=== PATIENT | male | born 1970 | race Caucasian/White ===

== ENCOUNTER 2018-07-14 14:16 | Emergency (ER) | payer BC ==
[~2018-07-14] VITALS: Ht 188 cm; Wt 86.2 kg
[2018-07-14 14:19] VITALS: BP_SYST 106
[2018-07-14] MEDS ORDERED: NACL 0.9% 1,000 ML IV ONE ×2 (14:31→16:15)
[2018-07-14] MEDS ORDERED: cefTRIAXone 1 GM IVPB PREMIX 50 ML IV ONE (14:45)
[2018-07-14 15:04] LABS: BILIRUBIN,URINE NEGATIVE (NEGATIVE); BLOOD, URINE NEGATIVE (NEGATIVE); CLARITY/URINE CLEAR (CLEAR); COLOR,URINE YELLOW (YELLOW); GLUCOSE,URINE NEGATIVE (NEGATIVE); KETONES,URINE 1+ (NEGATIVE); LEUKOCYTE ESTERASE ,URINE NEGATIVE (NEGATIVE); NITRITE, URINE NEGATIVE (NEGATIVE); PH,URINE 5.5 (5.0-8.0); PROTEIN URINE 1+ (NEGATIVE); UROBILINOGEN,URINE 0.2 (0.2-1.0)
[2018-07-14 15:08] LABS: BACTERIA,URINE FEW /HPF (None Seen)
[2018-07-14 15:12] LABS: BARBITURATE, URINE NEGATIVE (NEG <=200); BENZODIAZEPINE, URINE NEGATIVE (NEG <=150); CANNABINOID, URINE NEGATIVE (NEG <=50); COCAINE, URINE NEGATIVE (NEG <=150); METHAMPHETAMINES SCREEN,URINE POSITIVE (NEG <=500); URINE AMPHETAMINE POSITIVE (NEG <=500); URINE METHADONE NEGATIVE (NEG <=200)
[2018-07-14 15:13] LABS: OPIATE, URINE POSITIVE (NEG <=100); PHENCYCLIDINE SCREEN,URINE POSITIVE (NEG <=25); UR TRICYCLIC ANTIDEPRESSANTS NEGATIVE (NEG <=300); URINE OXYCODONE SCREEN NEGATIVE (NEG <=100); URINE PROPOXYPHENE SCREEN NEGATIVE (NEG <=300)
[2018-07-14 15:44] LABS: CALCIUM 8.9 mg/dL (8.4-11.0); CREATININE 1.69 mg/dL (0.55-1.30); POTASSIUM 3.9 mmol/L (3.5-5.1)
[2018-07-14 15:45] LABS: BASOPHILS # (AUTO) 0.1 K/uL (0.0-0.2); BASOPHILS % (AUTO) 0.4 % (0.0-2.0); EOSINOPHILS % (AUTO) 0.1 % (0.0-4.0); HEMATOCRIT 37.4 % (36-54); HEMOGLOBIN 12.4 g/dL (14.0-18.0); LYMPHOCYTES % (AUTO) 6.6 % (20.5-51.5); MEAN CORPUSCULAR HEMOGLOBIN 28 pg (27-31); MEAN CORPUSCULAR HGB CONC 33 % (32-36); MEAN CORPUSCULAR VOLUME 85 fL (79.0-98.0); MONOCYTES # (AUTO) 0.8 K/uL (0.0-1.0); MONOCYTES % (AUTO) 5.2 % (1.7-9.3); NEUTROPHILS # (AUTO) 12.9 K/uL (1.8-7.7); NEUTROPHILS % (AUTO) 87.7 % (40.0-70.0); PLATELET COUNT (AUTO) 326 K/uL (130-430); RED BLOOD CELL COUNT(AUTO) 4.39 MIL/uL (4.2-6.2); RED CELL DISTRIBUTION WIDTH 15.3 % (9.0-15.0); WHITE BLOOD COUNT (AUTO) 14.7 K/uL (4.8-10.8)
[2018-07-14 15:47] LABS: INR 1.1 (0.80-1.20)
[2018-07-14 15:51] LABS: ALBUMIN 3.4 g/dL (3.4-4.8); TOTAL BILIRUBIN 0.5 mg/dL (0.0-1.0)
[2018-07-14 16:14] LABS: CKMB RELATIVE INDEX 2.3 (0.0-2.9); CREATINE KINASE MB 8.9 ng/mL (0-3.6)
[2018-07-14 17:01] VITALS: BP_SYST 113
== END 2018-07-14 17:01 ==
LOC: SED 14:16
DX: L02.416 Cutaneous abscess of left lower limb (principal); F11.10 Opioid abuse, uncomplicated; F15.10 Other stimulant abuse, uncomplicated; R10.9 Unspecified abdominal pain; R07.89 Other chest pain; F17.210 Nicotine dependence, cigarettes, uncomplicated; Z71.0 Person encountering health services to consult on behalf of another person
CPT/HCPCS: 36415; 71045; 80053; 80307; 81000; 82150; 82550; 82553; 83605; 83690; 84484; 85025; 85610; 85730; 87040; 93005; 96361; 96374; 99284; J0696; J7030

== ENCOUNTER 2021-11-13 01:11 | Emergency (ER) | payer BC ==
[~2021-11-13] VITALS: Ht 188 cm; Wt 90.7 kg
[2021-11-13 03:00] VITALS: BP_SYST 133
--- NOTE | 2021-11-13 04:03 | NUR ---
JUAN EMANUEL BIB AMB WITH P OFFICER [employer] #[id number] FOR MED CLEARANCE AND ETOH BLOOD DRAW.
[2021-11-13 04:08] VITALS: BP_SYST 126
--- NOTE | 2021-11-13 04:10 | NUR ---
ETOH BLOOD DRAW PER [facility] OFFICER [employer] #[id number]. BLOOD DRAW TO LEFT A/C WTIH IODINE CLEANSER UNDER ASEPTIC TECHNIQUE. MORA TOP BLOOD VIAL HANDED TO OFFICER [employer]. PRESSURE DRESSING APPLIED TO LEFT A/C PT D/C'D IN CUSTODY OF [facility] OFFICER [employer] IN HANDCUFFS AMB TO POLICE CAR. VSS. PT AWAKE AND ORIENTED X4. CLEAR SPEECH
== END 2021-11-13 04:08 ==
LOC: SED 01:11
DX: Z02.89 Encounter for other administrative examinations (principal); F16.929 Hallucinogen use, unspecified with intoxication, unspecified; Z79.899 Other long term (current) drug therapy
CPT/HCPCS: 71045; 99283